=== PATIENT | male | born 1950 | race African-American/Black ===

== ENCOUNTER 2016-10-04 07:56 | Inpatient (IN) | payer MEDICARE ==
[~2016-10-04 07:56] MED LIST: Sodium Chloride 0.9% 1,000 ML BAG ONE; Sodium Chloride 0.9% 100 ML BAG ONE
[2016-10-04] MEDS ORDERED: Ketorolac Tromethamine 30 MG/ML VIAL ONE (08:24)
[2016-10-04 08:37] LABS: Bilirubin Negative (Negative); Blood, Urine Moderate (Negative); Glucose, Urine (Dipstick) Negative (Negative); Leukocyte Moderate (Negative); Nitrite Positive (Negative); Protein, Urine (Dipstick) Negative (Neg-Trace); Urobilinogen 0.2 mg/dL (0.2-1.0); pH, Urine 5.5 (5.0-9.0)
[2016-10-04 08:39] LABS: Clarity Hazy (Clear)
[2016-10-04 08:45] LABS: Bacteria/HPF 3+ HPF (None Seen); Squamous Epithelial 0-3 HPF (0-3)
[2016-10-04 09:19] LABS: ALT (SGPT) 25 U/L (8-55); AST (SGOT) 19 U/L (5-34); Albumin 4.1 g/dL (3.4-4.8); Alkaline Phosphatase 79 U/L (40-150); Anion Gap 15 mmol/L (10-20); BUN (Urea Nitrogen) 10 mg/dL (8.4-25.7); Bilirubin, Total 0.7 mg/dL (0.2-1.2); Calc. Creatinine Clearance 0 mL/min (70-130); Calcium 9.1 mg/dL (7.8-10.44); Carbon Dioxide 24 mmol/L (23-31); Chloride 105 mmol/L (98-107); Estimated GFR-MDRD Greater than 90; Globulin 3.1 g/dL (2.4-3.5); Glucose 118 mg/dL (80-115); Potassium 3.2 mmol/L (3.5-5.1); Protein, Total 7.2 g/dL (5.8-8.1); Sodium 141 mmol/L (136-145)
[2016-10-04] MEDS ORDERED: Lidocaine 1% w/Epinephrine 1:100K 20 ML VIAL ONE (09:20)
[2016-10-04 09:27] LABS: Band 3 % (5-11); Hemoglobin 13.2 g/dL (14.0-18.0); Lymphocytes 5 % (21-51); MDiff Complete? YES; Mean Corpuscular HGB CONC 33.5 g/dL (32.0-36.0); Mean Corpuscular Hemoglobin 28.7 pg (27.0-31.0); Mean Corpuscular Volume 85.7 fl (80.0-94.0); Mean Platelet Volume 9.5 fL (7.4-10.4); Monocytes 7 % (0-10); Neutrophil 85 % (42-75); PLT Morphology Comment Appears Decreased; Platelet Count 113 thou/uL (130-400); RBC Distribution Width 12.7 % (11.5-14.5); RBC Morphology Normal; Red Blood Cell (RBC) Count 4.61 mill/uL (4.70-6.10); White Blood Cell (WBC) Count 16.9 thou/uL (4.8-10.8)
[2016-10-04] MEDS ORDERED: cefTRIAXone\\ROCEPHIN 2 GM VIAL ONE (09:43)
[2016-10-04] MEDS ORDERED: Acetaminophen 500 MG TAB ONE (09:55)
[2016-10-04 13:08] VITALS: BMI 28.3
[2016-10-04] MEDS ORDERED: Guaifenesin DM 100-10/5 ML UDCUP PO PRN (13:17)
[2016-10-04] MEDS ORDERED: Senokot 8.6 MG TAB PO PRN (13:17)
[2016-10-04] MEDS ORDERED: HYDROcodone/Acetaminophen 5/325 mg Tablet PO PRN (13:17)
[2016-10-04] MEDS ORDERED: Sodium Chloride 0.9% 1,000 ML IV SCH (13:17)
[2016-10-04] MEDS ORDERED: Ondansetron HCl/PF 4 MG/2 ML Vial SLOW IVP PRN (13:17)
[2016-10-04] MEDS ORDERED: Bisacodyl 5 MG TAB PO PRN (13:17)
[2016-10-04] MEDS ORDERED: Ondansetron ODT 4 MG TAB PO PRN (13:17)
[2016-10-04] MEDS: Sodium Chloride 0.9% 1,000 ML IV SCH (14:47)
[2016-10-04] MEDS: Acetaminophen 325 MG TAB PO PRN (15:44)
[2016-10-04] MEDS: HYDROcodone/Acetaminophen 5/325 mg Tablet PO PRN (17:04)
[2016-10-04 17:51] LABS: BF Color Yellow; Body Fluid Source SYNOVIAL FLUID; Clarity Clear (Clear); Tube # 1
[2016-10-04 17:53] LABS: RBC Background Count 0.006
[2016-10-04 18:23] LABS: BF RBC Count - Manual 63250 /cumm; BF WBC/Nonhematics Ct. - Manua 230 /cumm
[2016-10-04 19:11] LABS: BF Segmented Neutrophils 8 %; Cell Count Non Hematic 74 %; Lymphocytes 18 %
--- NOTE | 2016-10-04 19:33 | RAD ---
CHEST TWO VIEWS 10/04/16 COMPARISON: None. HISTORY: Fever. FINDINGS: There is a dual lead transvenous pacing device. There is increased linear interstitial density, mild . There is no pneumothorax or pleural fluid and no lobar consolidation or alveolar edema. The lungs appear mildly hyperinflated suggesting air trapping. IMPRESSION: Mild interstitial prominence and pulmonary hyperinflation with no lobar consolidation or alveolar ed tom. POS: FELICIAH
[2016-10-04] MEDS: Famotidine 20 MG TAB PO SCH (20:54)
[2016-10-04] MEDS: Ibuprofen 600 MG TAB PO PRN (20:54)
[2016-10-04] MEDS: Docusate 100 MG CAP PO SCH (20:55)
[2016-10-04] MEDS: Timolol 0.5% Ophth Soln 5 ml Bottle EA EYE SCH (20:58)
[2016-10-04] MEDS: Brimonidine Tartrate 0.2% Ophth Soln 5 ml Bottle EA EYE SCH (20:58)
[2016-10-04] MEDS: Latanoprost 0.005% Ophth Soln 2.5 ml Bottle EA EYE SCH (21:12)
[2016-10-04] MEDS: Vancomycin HCl 1 GM in Sodium Chloride 0.9% 250 ML 250 ML IVPB SCH (22:59)
--- NOTE | 2016-10-04 23:48 | HP ---
DATE OF ADMISSION: 10/04/2016 CHIEF COMPLAINT: Low back pain and fever and chills. PRESENT ILLNESS: The patient is a 65-year-old Chris male who has a history of multiple myeloma for which he received a stem cell transplant in 2011 and has been in remission since then. He also has hypertension, glaucoma, chronic low back pain secondary to lumbar spondylosis. The patient said he started feeling bad 2 days prior to admission just with some left low back pain and some pain in the left knee. The patient said that the following day he just did not feel any better. He just still feel kind of achy and tired and then on the morning of 10/04/2016, he developed fever and chills, a lso noticed that he was urinating every 5 minutes and was having dysuria. The patient presented to the emergency room where he was evaluated. In the emergency room, the patient had a temperature of 102. His lab studies showed an H\T\H of 13.2 and 39.5 with a white blood cell count of 16,900 with 85% segs, 3% bands, 5% lymphocytes, and platelet count was 113,000. Sodium was 141, potassium 3.2, BUN 10, creatinine 0.76, estimated GFR greater than 90. His glucose was 118. Lactic acid 1.9. His albumin 4.1 and protein was 7.2. His voided urine specimen shows specific gravity 1.020 with WBCs too numerous to count, 4-6 RBCs, 0-3 squamous cells, and he had 3+ bacteria. The patient had urine and blood cultures obtained. He was started on IV fluids. The patient had little swelling of the r ight knee that was tapped and the fluid was clear. The patient was started on IV Rocephin and also given initial dose of IV vancomycin and admitted with the diagnosis of urinary tract infection/pyelo nephritis and synovitis of the right knee. The patient was evaluated and when he was admitted to his hospital room, he said he was feeling a li ttle better, but his temperature had dropped, but then it gone back up to 102.9. He was able to rev iew with me the above history. He says his left knee has been more sore than the right. The left k nee though had not swelled up. He said he injured the knee about 3 months ago and periodically gets sore, but this is the first time it swelled. PAST HISTORY: The patient has multiple myeloma and IgG kappa for which he had an autologous stem ce ll transplant in 2011 and has been in remission since then; he was treated [facility] [place]. He also has diabetes type 2, hemoglobin A1c on 07/29/2016 was 5.5. The patient has hypertension, glaucoma, lumbar spondylosis with chronic pain, osteoarthritis, peripheral neuropathy of the lower extremities, hyperlipidemia, gastroesophageal reflux disease, incarcerated umbilical hernia that is asymptomatic and a pacemaker for sick sinus syndrome. He also has chronic neck pain from cervical spondylosis and cervical stenosis. The patient has had back surgery in the lumbar spine in 1991 and 1992. He has had right knee orthosis arthroscopic surgery in 1984, pacemak er placed in 2006 and autologous stem cell transplant 09/02/2011. PRESENT MEDICINES: Metformin 1000 mg b.i.d., lisinopril 2.5 mg daily, calcium 600 mg with vitamin D 200 mg 1 daily, Prevacid 30 mg daily, Combigan (brimonidine/timolol 0.2%/0.5% two drops in each eye b.i.d.), latanoprost 0.005% 1 drop in each eye at night, ibuprofen 200 mg 2 tablets b.i.d. as neede d for joint pain, MiraLax 17 grams in 8 ounces of water daily, aspirin 81 mg daily. ALLERGIES: No known allergies. REVIEW OF SYSTEMS: The patient said he has had fever and chills since early on the morning of admis ami. He is also complains of generalized aches and pains, particularly in the left low back and in the left knee. HEAD AND NECK: No complaints. PULMONARY: No cough or shortness breath. CARDIOVASCULAR: No chest pain. GASTROINTESTINAL: The patient said he was little nauseated when he came in, but he has had no vomit ing, no abdominal pain. GENITOURINARY: The patient complained of 1-2 days of frequent urination with dysuria and urgency. MUSCULOSKELETAL: The patient has chronic neck and low back pain and also has some trouble pain in t he knees. HABITS: Tobacco: The patient smoked for many years, but stopped several years ago. Alcohol none. SOCIAL HISTORY: The patient is , lives with his . CODE STATUS: FULL CODE. PHYSICAL EXAMINATION: GENERAL: Shows a pleasant 65-year-old Chris male who is lying in bed. He is alert and oriented x3 and appears in no acute distress, but he is running fever. VITAL SIGNS: Shows a temperature of 102.8; pulse 95: his respirations are 18; O2 sat 96% on room ai r; blood pressure 171/90, earlier 136/77. His weight is 209. His height is 72 inches. HEAD: Normocephalic. EYES: Pupils are equal, round, and reactive. Sclerae nonicteric. The patient has bilateral catara cts. EARS: The TMs are blocked by cerumen. NOSE: Normal. MOUTH AND THROAT: Normal. NECK: Carotids are equal and strong, no bruits. Thyroid not enlarged. LUNGS: Clear. HEART: Regular rate, no murmurs. ABDOMEN: Soft with no organomegaly, nor areas of tenderness. BACK: There is no CVA tenderness, no point tenderness. The hips are not tender on movement. EXTREMITIES: Left knee has good range of motion. No crepitation or tenderness. Right knee has mil d effusion, does not feel any warmer than the opposite knee. The area of the knee is nontender. Th ere is some moderate crepitation on movement. Lower extremities, there is no edema. NEUROLOGIC: The patient alert and oriented x3. There is no focal weakness. IMPRESSION: 1. Urinary tract infection/pyelonephritis. 2. Diabetes type 2. A. Good control. Hemoglobin A1c on 07/29/2016 was 5.5. 3. Multiple myeloma. A. Status post autologous stem cell transplant in 2001. B. Remains in remission since 2011. 4. Hypertension. 5. Glaucoma. 6. Lumbar spondylosis. A. Status post surgery on the low back in 1991, 1992. 7. Status post pacemaker placement in 2006 for sick sinus syndrome. 8. Umbilical hernia, non-incarcerated, asymptomatic. 9. Osteoarthritis. 10. Synovitis of the right knee. A. Status post tap on admission, the fluid reported is clear. I have not seen the lab analysis. 11. Thrombocytopenia. A. Admission platelet count 113,000. PLAN: The patient has been admitted to the hospital where he will continue receive IV fluids and IV antibiotics and will give Tylenol and ibuprofen as needed for fever. We will place patient on inte rmittent compression hose for deep venous thrombosis prophylaxis. We will hold Lovenox since he is mildly thrombocytopenic in the count of 113.
[2016-10-05] MEDS: Acetaminophen 325 MG TAB PO PRN (00:43)
[2016-10-05] MEDS: Sodium Chloride 0.9% 1,000 ML IV SCH (05:02)
[2016-10-05] MEDS ORDERED: Enoxaparin Sodium 40 MG/0.4 ML SYRINGE SC SCH (06:00)
[2016-10-05 07:59] LABS: Hemoglobin 11.6 g/dL (14.0-18.0); Mean Corpuscular HGB CONC 34.1 g/dL (32.0-36.0); Mean Corpuscular Hemoglobin 29.1 pg (27.0-31.0); Mean Corpuscular Volume 85.4 fl (80.0-94.0); Mean Platelet Volume 9.7 fL (7.4-10.4); Platelet Count 95 thou/uL (130-400); Red Blood Cell (RBC) Count 3.98 mill/uL (4.70-6.10); White Blood Cell (WBC) Count 14.7 thou/uL (4.8-10.8)
[2016-10-05 08:06] LABS: Anion Gap 11 mmol/L (10-20); BUN (Urea Nitrogen) 8 mg/dL (8.4-25.7); Calc. Creatinine Clearance 147 mL/min (70-130); Calcium 8.7 mg/dL (7.8-10.44); Carbon Dioxide 24 mmol/L (23-31); Chloride 109 mmol/L (98-107); Estimated GFR-MDRD Greater than 90; Glucose 132 mg/dL (80-115); Hemoglobin A1c 5.4 % (4.0-6.0); Sodium 141 mmol/L (136-145)
[2016-10-05 08:08] LABS: Lymphocytes 16 % (21-51); MDiff Complete? YES; Neutrophil 77 % (42-75)
[2016-10-05 08:09] LABS: Delete Auto Diff?? YES; Monocytes 7 % (0-10); PLT Morphology Comment Appears Decreased
[2016-10-05] MEDS: Famotidine 20 MG TAB PO SCH ×2 (08:22→20:26)
[2016-10-05] MEDS: Calcium Carbonate + Vit D 1 TAB PO SCH (08:22)
[2016-10-05] MEDS: Brimonidine Tartrate 0.2% Ophth Soln 5 ml Bottle EA EYE SCH ×2 (08:23→20:27)
[2016-10-05] MEDS: Lisinopril 5 MG TAB PO SCH (08:23)
[2016-10-05] MEDS: Docusate 100 MG CAP PO SCH ×2 (08:23→20:26)
[2016-10-05] MEDS: HYDROcodone/Acetaminophen 5/325 mg Tablet PO PRN (08:27)
[2016-10-05] MEDS: Timolol 0.5% Ophth Soln 5 ml Bottle EA EYE SCH ×2 (09:09→20:28)
[2016-10-05] MEDS ORDERED: cefTRIAXone\\ROCEPHIN 2 GM in Sodium Chloride 0.9% 100 ML IVPB SCH (10:00)
[2016-10-05] MEDS: NS 0.9% w/ 20 MEQ KCL 1,000 ML/1,000 ML BAG IV SCH (10:13)
[2016-10-05] MEDS: Vancomycin HCl 1 GM in Sodium Chloride 0.9% 250 ML 250 ML IVPB SCH ×2 (10:19→22:46)
--- NOTE | 2016-10-05 16:11 | PRG ---
DATE OF SERVICE: 10/05/2016 SUBJECTIVE: The patient said he is feeling better today. He has not had any of the dysuria. His l eft knee is feeling better. He thinks that the swelling in the right knee has gone down. He does h ave a little headache. Overall, he feels much better. OBJECTIVE: GENERAL: The patient is lying in bed, alert and oriented x3, appears very comfortable. VITAL SIGNS: His temperature is 97.9, pulse 81, respirations 20, O2 sat 95%, blood pressure 109/68. During last evening, patient's temperature was up to 101.6, but then has gradually come down to no rmal and remained normal. LUNGS: His lungs were clear. HEART: Regular rate. No murmurs. ABDOMEN: Soft, nontender. EXTREMITIES: Left knee: No effusion, no tenderness. Right knee: Small effusion. There is no ten derness, no redness, no increased heat. LABORATORY DATA AND X-RAY FINDINGS: His labs shows a H\T\H of 11.6 and 34 with a white cell count d own to 14,700 with 77% segs, 16% lymphocytes, platelet count dropped from 113-95,000. Sodium 141, p otassium is 3, BUN is 8, creatinine 0.69, glucose 132, hemoglobin A1c 5.4. Chest x-ray that was per formed yesterday shows some pulmonary hyperinflation, no lobar consolidation or alveolar edema. The re is a mild interstitial prominence. Patient has a pacemaker present. There is no cardiomegaly. The (3.13) from the right knee showed a few WBCs, some RBCs present, no organisms seen and no growth at 12 hours. Blood cultures have no growth x2. Influenza A and B nasal swabs were both nega tive. Urine culture pending. ASSESSMENT: 1. Urinary tract infection/pyelonephritis. A. Improved with no fever as of 10/05/2016. 2. Diabetes type 2. A. Good control. Hemoglobin A1c on 10/05/2016 was 5.4. 3. Multiple myeloma. A. Status post autologous stem cell transplant in 2001. B. Remains in remission since 2011. 4. Hypertension. 5. Glaucoma. 6. Lumbar spondylosis. A. Status post surgery on the low back in 1991, 1992. 7. Status post pacemaker placement in 2006 for sick sinus syndrome. 8. Umbilical hernia, non-incarcerated, asymptomatic. 9. Osteoarthritis. 10. Synovitis of the right knee. A. Thoracentesis done in the emergency room on admission of 10/04/2016. Culture has no growth. B. fusion is less and nontender with no increased heat as of 10/05/2016. 11. Thrombocytopenia. A. Platelet count of 95,000 as of 10/05/2016. 12. Hypokalemia. PLAN: Overall, patient looks much better, the fever is down. We will continue present care. Urine culture back, anticipate. We will be able to modify antibiotics and reduce the broad spectrum cove rage. I will place the patient on potassium supplementation, increase activities.
[2016-10-05] MEDS: Ibuprofen 600 MG TAB PO PRN (19:33)
[2016-10-05] MEDS: Latanoprost 0.005% Ophth Soln 2.5 ml Bottle EA EYE SCH (20:32)
[2016-10-06] MEDS: Acetaminophen 325 MG TAB PO PRN (00:08)
--- NOTE | 2016-10-06 07:41 | PRG ---
DATE OF SERVICE: 10/06/2016 SUBJECTIVE: The patient said he is feeling better. He did apparently run a little fever that was l ow grade through the night. He says he is not having any back pain. His left knee feels better. O verall, he thinks he is improved. OBJECTIVE: GENERAL: The patient is lying in bed, he is alert and appears in no distress. VITAL SIGNS: His temperature this morning is 97.9, maximum temperature over the last 12 hours has b een 100, his respirations are 16, pulse 68, blood pressure 138/86, O2 sat 97% on room air. LUNGS: Clear. HEART: Regular rate. BACK: There is no CVA tenderness. EXTREMITIES: Left knee, there is no effusion. Right knee, there is a small effusion, which is much less than it was on admission. There is no increased heat and there is no tenderness or increased warmth. LABORATORY DATA: His lab for the day is pending. His urine culture is growing E. coli with colony count greater than 100,000. The organism is sensitive to ceftriaxone, Cipro, Levaquin, and trimetho prim/sulfamethoxazole resistant to the penicillins. ASSESSMENT: 1. Urinary tract infection/pyelonephritis. A. Continued improvement with only the low grade fever over the last 12 hours as of 10/06/2016. B. Blood cultures no growth. Urine culture growing E. coli, colony count greater than 100,000 with sensitivity to ceftriaxone and Levaquin. 2. Diabetes type 2. A. Good control. Hemoglobin A1c on 10/05/2016 was 5.4. 3. Multiple myeloma. A. Status post autologous stem cell transplant in 2001. B. Remains in remission since 2011. 4. Hypertension. 5. Glaucoma. 6. Lumbar spondylosis. A. Status post surgery on the low back in 1991, 1992. 7. Status post pacemaker placement in 2006 for sick sinus syndrome. 8. Umbilical hernia, non-incarcerated, asymptomatic. 9. Osteoarthritis. 10. Synovitis of the right knee. A. Thoracentesis done in the emergency room on admission of 10/04/2016. Culture has no growth. B. fusion is less and nontender with no increased heat as of 10/05/2016. 11. Thrombocytopenia. A. Platelet count of 95,000 as of 10/05/2016. 12. Hypokalemia. PLAN: We will stop IV fluids. We will discontinue the vancomycin and the ceftriaxone, but continue the Levaquin.
[2016-10-06] MEDS: NS 0.9% w/ 20 MEQ KCL 1,000 ML/1,000 ML BAG IV SCH (08:25)
[2016-10-06] MEDS: Brimonidine Tartrate 0.2% Ophth Soln 5 ml Bottle EA EYE SCH ×2 (09:28→20:45)
[2016-10-06] MEDS: Timolol 0.5% Ophth Soln 5 ml Bottle EA EYE SCH ×2 (09:28→20:59)
[2016-10-06] MEDS: Docusate 100 MG CAP PO SCH ×2 (09:28→20:49)
[2016-10-06] MEDS: Lisinopril 5 MG TAB PO SCH (09:29)
[2016-10-06] MEDS: Famotidine 20 MG TAB PO SCH ×2 (09:30→20:48)
[2016-10-06] MEDS: Ibuprofen 600 MG TAB PO PRN (13:22)
[2016-10-06 16:44] LABS: Chlamydia by PCR Not Detected (NotDetected); GC by PCR Not Detected (NotDetected)
[2016-10-06] MEDS: Latanoprost 0.005% Ophth Soln 2.5 ml Bottle EA EYE SCH (20:52)
[2016-10-07] MEDS ORDERED: Sodium Chloride 0.9% 1,000 ML BAG ONE (07:00)
[2016-10-07] MEDS ORDERED: NS 0.9% w/ 20 MEQ KCL 1,000 ML BAG ONE (07:00)
[2016-10-07 07:49] LABS: #Basophils 0.1 thou/uL (0.0-0.2); #Eosinphils 0.2 thou/uL (0.0-0.7); #Lymphocytes 2.3 thou/uL (1.20-3.40); #Monocytes 1.1 thou/uL (0.11-0.59); #Neutrophils 6.3 thou/uL (1.40-6.50); %Basophils 0.6 % (0.0-1.0); %Eosinophils 1.8 % (0.0-10.0); %Lymphocytes 23.3 % (21.0-51.0); %Monocytes 11.1 % (0.0-10.0); %Neutrophils 63.3 % (42.0-75.0); Hemoglobin 12.8 g/dL (14.0-18.0); Mean Corpuscular HGB CONC 34.3 g/dL (32.0-36.0); Mean Corpuscular Volume 84.7 fl (80.0-94.0); Mean Platelet Volume 11.5 fL (7.4-10.4); PLT Morphology Comment Appears Decreased; Platelet Count 115 thou/uL (130-400); RBC Distribution Width 12.7 % (11.5-14.5); Red Blood Cell (RBC) Count 4.39 mill/uL (4.70-6.10)
[2016-10-07 07:50] LABS: MDiff Complete? YES
[2016-10-07 08:33] VITALS: BP 162/93; TEMP 97.5
[2016-10-07] MEDS: Timolol 0.5% Ophth Soln 5 ml Bottle EA EYE SCH (09:01)
[2016-10-07] MEDS: Brimonidine Tartrate 0.2% Ophth Soln 5 ml Bottle EA EYE SCH (09:01)
[2016-10-07] MEDS: Lisinopril 5 MG TAB PO SCH (09:03)
[2016-10-07] MEDS: Docusate 100 MG CAP PO SCH (09:04)
[2016-10-07] MEDS: Calcium Carbonate + Vit D 1 TAB PO SCH (09:04)
[2016-10-07] MEDS: Famotidine 20 MG TAB PO SCH (09:04)
[2016-10-07] MEDS ORDERED: Senokot 8.6 MG TAB PO PRN (09:06)
[2016-10-07] MEDS ORDERED: Bisacodyl 5 MG TAB PO PRN (09:06)
--- NOTE | 2016-10-07 09:44 | DIS ---
FINAL DIAGNOSES: 1. Urinary tract infection/pyelonephritis. A. Asymptomatic and afebrile for over 24 hours as of 10/07/2016. B. Blood cultures no growth. Urine culture growing E. coli, colony count greater than 100,000 with sensitivity to ceftriaxone and Levaquin. 2. Diabetes type 2. A. Good control. Hemoglobin A1c on 10/05/2016 was 5.4. 3. Multiple myeloma. A. Status post autologous stem cell transplant in 2001. B. Remains in remission since 2011. 4. Hypertension. 5. Glaucoma. 6. Lumbar spondylosis. A. Status post surgery on the low back in 1991, 1992. 7. Status post pacemaker placement in 2006 for sick sinus syndrome. 8. Umbilical hernia, non-incarcerated, asymptomatic. 9. Osteoarthritis. 10. Synovitis of the right knee. A. Thoracentesis done in the emergency room on admission of 10/04/2016. Culture has no growth. B. fusion is less and nontender with no increased heat as of 10/05/2016. 11. Thrombocytopenia. A. Platelet count of 95,000 as of 10/05/2016. 12. Hypokalemia. SUMMARY: The patient is a 65-year-old Chris male who has a history of multiple myeloma for which he received a stem cell transplant in 2011 and has been in remission since then. He has hypertension, glaucoma, diabetes type 2, controlled and chronic low back pain secondary to lumbar spondylosis. T he patient presented to the emergency room for a history of 2 days of increased pain in the back and in the knees and with fever and chills on the day of admission and marked weakness. In the emergen cy room, the patient had a temperature of 102. His white cell count was 16,900 with 85% segs, 3% ba nds, platelet count of 113,000. His lactic acid was 1.9. His estimated GFR was greater than 90. H is urine showed specific gravity 1.020, WBCs too numerous to count. The patient was admitted to the hospital with the diagnosis of urinary tract infection. HOSPITAL COURSE: The patient was started on IV fluids. Blood cultures and urine cultures were obta ined. He also had noted to be having some pain in the knees and had an effusion of the right knee. Tap of the knee was done and showed just clear fluid. Later culture of this had no growth. This w as felt to just be a reactive synovitis. The patient was placed on IV Rocephin and IV vancomycin. Over the next 48 hours his temperature resolved and the back pain resolved. The synovitis of the ri ght knee, resolved. The patient was feeling a lot better. He had no more chills. The achiness had resolved. His blood cultures came back with no growth. The cultures from the arthrocentesis of th e right knee had no growth. The urine culture grew E. coli with a colony count greater than 100,000 with the organism sensitive to ceftriaxone and Levaquin. The patient was continued on the IV Levaq uin, which had been added to his regimen and vancomycin and ceftriaxone stopped. By 10/07/2016 the patient remained afebrile. His white cell count was down to 10,000 with 63% segs, 23% lymphocytes, and a platelet count was up to 115,000, hemoglobin 12.8. His FBS was 83 on 10/06/2016, hemoglobin A 1c on 10/05/2016 was 5.4. The patient's effusion of the right knee had resolved. There was no incr eased warmth nor any pain, nor in the left knee. The patient had had an upper urinary tract infecti on from the E. coli that was much improved and felt could now be managed as an outpatient. Will con tinue him on oral Levaquin for an additional 10 days which will give a total of 14 days IV course. The patient was discharged in good condition as of 10/07/2016. DISPOSITION: Diet: Consistent low carbohydrate diet with no added salt. ACTIVITIES: As tolerated. MEDICATIONS: Levaquin 500 mg daily x10 days, Tylenol 325 mg 2 every 4 hours as needed, metformin 10 00 mg b.i.d., lisinopril 2.5 mg b.i.d., Prevacid 30 mg daily, Caltrate D 600, 200 1 daily, Combigan ophthalmic drops 1-2 drops in each eye twice a day and Xalatan ophthalmic solution 0.005% 1 drop in each eye at bedtime, ibuprofen 200 mg 3 tablets 4 times a day as needed for joint pains. FOLLOW UP: The patient will be seen in followup in 2 weeks unless there is interval problem.
[2016-10-07 09:50] LABS: BUN (Urea Nitrogen) 10 mg/dL (8.4-25.7)
[2016-10-07 12:39] LABS: Anion Gap 15 mmol/L (10-20); Calc. Creatinine Clearance 141 mL/min (70-130); Calcium 9.2 mg/dL (7.8-10.44); Carbon Dioxide 24 mmol/L (23-31); Chloride 107 mmol/L (98-107); Estimated GFR-MDRD Greater than 90; Glucose 92 mg/dL (80-115); Potassium 3.7 mmol/L (3.5-5.1); Sodium 142 mmol/L (136-145)
== END 2016-10-07 10:00 | disposition home or self-care (01) | DRG 690 ==
LOC: MADERS 07:56 → MADMS 11:36
PROVIDERS: ADMIT Family Medicine; ATTEND Family Medicine
PROC: 0S9C3ZX Drainage of Right Knee Joint, Percutaneous Approach, Diagnostic (ICD-10-PCS; principal; 2016-10-04)
DX: N10 Acute pyelonephritis (principal); E11.42 Type 2 diabetes mellitus with diabetic polyneuropathy; D69.6 Thrombocytopenia, unspecified; B96.20 Unspecified Escherichia coli [E. coli] as the cause of diseases classified elsewhere; I10 Essential (primary) hypertension; C90.01 Multiple myeloma in remission; H40.9 Unspecified glaucoma; M19.90 Unspecified osteoarthritis, unspecified site; K21.9 Gastro-esophageal reflux disease without esophagitis; Z95.0 Presence of cardiac pacemaker; Z79.84 Long term (current) use of oral hypoglycemic drugs; Z87.891 Personal history of nicotine dependence; M47.896 Other spondylosis, lumbar region; K42.9 Umbilical hernia without obstruction or gangrene; M65.88 Other synovitis and tenosynovitis, other site; E87.6 Hypokalemia
CPT/HCPCS: 20610; 36415; 36416; 71020; 80048; 80053; 81003; 81015; 83036; 83605; 85025; 85060; 87040; 87070; 87077; 87086; 87186; 87205; 87491; 87591; 89051; 96361; 96365; 96375; J0696; J1885; J1956; J2001; J3370; J7050

== ENCOUNTER 2016-10-16 09:22 | Outpatient (CLI) | payer MEDICARE ==
[2016-10-16 10:16] LABS: #Basophils 0.1 thou/uL (0.0-0.2); #Eosinphils 0.2 thou/uL (0.0-0.7); #Lymphocytes 2.6 thou/uL (1.20-3.40); #Monocytes 0.6 thou/uL (0.11-0.59); #Neutrophils 3.8 thou/uL (1.40-6.50); %Basophils 0.9 % (0.0-1.0); %Eosinophils 2.3 % (0.0-10.0); %Lymphocytes 36.4 % (21.0-51.0); %Monocytes 8.9 % (0.0-10.0); %Neutrophils 51.6 % (42.0-75.0); Hemoglobin 12.1 g/dL (14.0-18.0); Mean Corpuscular HGB CONC 32.8 g/dL (32.0-36.0); Mean Corpuscular Hemoglobin 28.4 pg (27.0-31.0); Mean Corpuscular Volume 86.4 fl (80.0-94.0); Mean Platelet Volume 9.6 fL (7.4-10.4); Platelet Count 177 thou/uL (130-400); Red Blood Cell (RBC) Count 4.26 mill/uL (4.70-6.10); White Blood Cell (WBC) Count 7.3 thou/uL (4.8-10.8)
[2016-10-16 10:27] LABS: Anion Gap 12 mmol/L (10-20); BUN (Urea Nitrogen) 17 mg/dL (8.4-25.7); Calc. Creatinine Clearance 0 mL/min (70-130); Calcium 8.9 mg/dL (7.8-10.44); Carbon Dioxide 25 mmol/L (23-31); Chloride 108 mmol/L (98-107); Estimated GFR-MDRD Greater than 90; Glucose 94 mg/dL (80-115); Potassium 3.7 mmol/L (3.5-5.1); Sodium 141 mmol/L (136-145)
--- NOTE | 2016-10-16 12:39 | RAD ---
3 VIEW RIGHT KNEE: Date: 10/16/16 INDICATION: Post-traumatic pain. FINDINGS: There is moderate joint capsular distention. No fracture or dislocation. There is degenerative rushing e with chondrocalcinosis. No fracture or dislocation. IMPRESSION: 1. Moderate joint capsular distention. Correlate clinically. 2. No acute fracture. 3. Evidence of CPPD deposition disease. POS: FELICIA
== END 2016-10-16 09:23 | disposition home or self-care (01) ==
LOC: MADLABBHPM 09:22
PROVIDERS: ATTEND Family Medicine
DX: E11.9 Type 2 diabetes mellitus without complications (principal); M25.561 Pain in right knee; M25.861 Other specified joint disorders, right knee
CPT/HCPCS: 36415; 80048; 85025